=== PATIENT | female | born 1975 | race Caucasian/White ===

== ENCOUNTER → 2017-09-07 | Day surgery (SDC) | payer BC ==
[~2017-09-07] MED LIST: AMITRIPTYLINE H25 MG PO; ATIVAN1 MG PO; BENEFIBER1 EACH PO; BENZTROPINE ME0.5 MG PO; CLONAZEPAM0.5 MG PO; COLACE100 MG PO; DIPHENHYDRAMINE HCL INJ 1 ML ONE; ELAVIL PO; FENTANYL CITRATE/PF 100MCG/2 ML INJ ONE; FLORINEF PO; FLUCONAZOLE 200 MG/100 ML 100 ML IV ONE; GEODON80 MG PO; INSULIN PUMP; LASIX20 MG PO; LEVAQUIN D PO; LEVAQUIN500 MG PO; LIDOCAINE HCL 2% LOCAL INJ 5 ML SDV VIAL INJ ONE; LIPITOR40 MG PO; LUTEIN6 MG PO; MECLIZINE HCL25 MG PO; NORCO 10-325 T1 EACH; NORCO 10-325 T1 EACH PO; NORTRIPTYLINE H50 MG PO; OXCARBAZEPINE300 MG PO; OXYCONTIN20 MG PO; OXYCONTIN30 MG PO; PANTOPRAZOLE SO40 MG PO; PROMETHAZINE HC25 M1 PO; PROPOFOL IV EMULSION 10 MG/ML 50 ML VIAL ONE; PROPRANOLOL HCL20 MG PO; SEROQUEL XR50 MG PO; SYNTHROID150 MCG PO; TEMAZEPAM30 MG PO; THERA1 EACH PO; TOPAMAX50 MG PO; TRIAZOLAM0.25 MG PO; VIIBRYD40 MG PO
--- NOTE | 2017-09-07 11:30 | Operative Report ---
DATE OF PROCEDURE: September 07, 2017 REFERRING PHYSICIAN: Dr. Hawk Hopkins PROCEDURES PERFORMED 1. Esophagogastroduodenoscopy with esophageal dilatation, biopsies and polypectomy. 2. Colonoscopy with biopsies and polypectomy. INDICATIONS FOR EGD: Dysphagia, upper abdominal pain. INDICATIONS FOR COLONOSCOPY: Constipation and history of colitis. MEDICATION: Patient was done under MAC. Please see anesthesiologist's note. PROCEDURE: With the patient in the left lateral decubitus position, the flexible fiberoptic Olympus gastroscope was introduced into the esophagus under direct visualization without any difficulty. There were some scattered whitish plaques throughout the esophagus. Those were brushed and sent to stain for master. There was a mild stricture noted at the GE junction, and that was dilated to size 52-[place] Morrow. The scope was then advanced with ease into the stomach, and the mucosa overlying the antrum revealed some patchy, intense erythema and low-grade edema, and biopsies were obtained and sent to stain for H. pylori. There were some atrophic changes noted in the body of the stomach, and biopsies were obtained to rule out atrophic gastritis. The pylorus was of normal contour and shape. It was intubated with ease, and the scope was advanced all the way to the 2nd portion of the duodenum. There was a minute nodule noted in the proximal 2nd portion that was excised per the cold biopsy forceps. The mucosa overlying the duodenal bulb appeared to be within normal limits. The scope was then withdrawn back into the stomach and retroflexed, and a minute polyp was noted in the fundus of the stomach and that was excised per the cold biopsy forceps. An intact Lap-Band was also noted. The scope was then straightened out. The stomach was decompressed. Scope was subsequently withdrawn. Patient tolerated the procedure well. Of note, on the way out, a minute tongue of velvety red mucosa was noted to extend proximally from the GE junction, and biopsies were obtained to rule out Voss's. IMPRESSION 1. Rule out master esophagitis. 2. Rule out Voss's esophagus. 3. Esophageal stricture at gastroesophageal junction dilated to size 52-[place] Morrow. 4. Gastritis, antrum, biopsied. Biopsies sent to stain for H. pylori. 5. Rule out atrophic gastritis, gastric body. 6. Minute polyp at fundus, excised with cold biopsy forceps. 7. Lap-Band intact. 8. Duodenal polyp, proximal 2nd portion, removed per the cold biopsy forceps. PLAN: Follow up histology. Continue current therapy. Add Diflucan 200 mg 1 p.o. daily times 7 days. The patient was then turned around. After adequate lubrication of the anal canal, a flexible fiberoptic Olympus colonoscope was inserted into the rectum with ease and advanced all the way to the cecum. A minute polyp was hot biopsied from the cecum. The ascending and transverse grossly appeared to be within normal limits. The left colon revealed some patchy mild to moderate inflammatory changes. Multiple random biopsies were obtained. Two minute polyps were hot biopsied from the rectum. The scope was then retroflexed into the distal rectum, and small internal hemorrhoids were noted, none of which were actively bleeding. The scope was then straightened out. Rectosigmoid area as well as the distal rectal area were decompressed. Scope was subsequently withdrawn. Patient tolerated the procedure well. IMPRESSION 1. Cecal polyp, hot biopsied. 2. Mild, patchy, left-sided colitis. 3. Rectal polyps times 2, hot biopsied. 4. Internal hemorrhoids, none actively bleeding. PLAN: Follow up histology. Patient will need a followup colonoscopy in 3 years. Job#: [id number] CC: HAWK HOPKINS DO
== END | disposition home or self-care (01) ==
LOC: OR 07:15
PROVIDERS: ATTEND Internal Medicine Gastroenterology
DX: K59.00 Constipation, unspecified (principal); D12.0 Benign neoplasm of cecum; K62.1 Rectal polyp; K31.7 Polyp of stomach and duodenum; K29.50 Unspecified chronic gastritis without bleeding; K22.2 Esophageal obstruction; K51.50 Left sided colitis without complications; K21.9 Gastro-esophageal reflux disease without esophagitis; K20.9 Esophagitis, unspecified; Z98.84 Bariatric surgery status; K64.8 Other hemorrhoids; E10.9 Type 1 diabetes mellitus without complications; I95.1 Orthostatic hypotension; E03.9 Hypothyroidism, unspecified; G62.9 Polyneuropathy, unspecified; F32.9 Major depressive disorder, single episode, unspecified; F41.9 Anxiety disorder, unspecified; F43.10 Post-traumatic stress disorder, unspecified; Z01.810 Encounter for preprocedural cardiovascular examination; Z79.4 Long term (current) use of insulin; Z94.83 Pancreas transplant status
CPT/HCPCS: 36415; 43239; 43450; 45384; 82948; 93005; J1200; J1450; J2001; 45380

== ENCOUNTER → 2020-02-22 | Day surgery (SDC) | payer BC, OTHER ==
[~2020-02-22] MED LIST changes: -DIPHENHYDRAMINE HCL INJ 1 ML ONE; -FENTANYL CITRATE/PF 100MCG/2 ML INJ ONE; -FLUCONAZOLE 200 MG/100 ML 100 ML IV ONE; +MIRALAX17 GM PO; +PRAVACHOL40 MG PO; +PROPOFOL IV EMULSION 10 MG/ML 20 ML VIAL ONE; -PROPOFOL IV EMULSION 10 MG/ML 50 ML VIAL ONE; +SERTRALINE HCL50 MG PO; +SUCRALFATE1 GM PO; +TRAZODONE HCL50 MG PO
[2020-02-22 16:35] VITALS: BP 128/80
--- NOTE | 2020-02-22 23:27 | Operative Report ---
DATE OF PROCEDURE: 02/22/2020 SURGEON: Sancho Benitez MD PROCEDURE: EGD with esophageal dilatation and biopsies. INDICATION FOR PROCEDURES: Dysphagia. MEDICATIONS: The patient was done under MAC, please see anesthesiologist's note. PROCEDURE IN DETAIL: With the patient in the left lateral decubitus position, a flexible fiberoptic Olympus gastroscope was introduced into the esophagus under direct visualization without any difficulty. The esophagus appeared to be within normal limits. A minute tongue of velvety red mucosa was noted to extend proximally from the GE junction that was biopsied to rule out Voss's. Esophagus was then dilated to size 52-[place] Morrow. The scope was then advanced with ease into the stomach. Mucosa overlying the antrum and the body revealed some patchy intense erythema and low-grade to moderate edema and biopsies were obtained, sent to stain for H pylori. There was some retained solid debris noted in the stomach, particularly in the fundus and the body reflective of some gastroparesis. The pylorus was of normal contour and shape, was intubated with ease and the scope was advanced all the way to the second portion of the duodenum. The scope was then withdrawn slowly. Mucosa overlying the proximal second portion and the duodenal bulb appeared to be within normal limits. The scope was then withdrawn back into the stomach and retroflexed and the lap band appeared to be intact and in good position. The scope was then straightened out and was subsequently withdrawn. The patient tolerated the procedure well. IMPRESSION: 1. Rule out Voss's esophagus. 2. Esophagus dilated to size 52-[place] Morrow. 3. Status post lap band intact. 4. Gastritis, biopsied, biopsies sent to stain for H pylori. 5. Some retained solid debris in fundus and body of stomach reflective of some gastroparesis. PLAN: Follow up histology. Continue Protonix 40 mg one p.o. a.c. b.i.d. Sancho Benitez MD [facility] [place]/MOD[facility] /[id number] cc: Tita Uribe DO
== END | disposition home or self-care (01) ==
LOC: OR 12:49
PROVIDERS: ATTEND Internal Medicine Gastroenterology
DX: K20.9 Esophagitis, unspecified (principal); K29.50 Unspecified chronic gastritis without bleeding; K31.84 Gastroparesis; K21.9 Gastro-esophageal reflux disease without esophagitis; Z98.84 Bariatric surgery status; I95.1 Orthostatic hypotension; E03.9 Hypothyroidism, unspecified; E10.9 Type 1 diabetes mellitus without complications; Z88.8 Allergy status to other drugs, medicaments and biological substances; Z91.048 Other nonmedicinal substance allergy status; Z01.810 Encounter for preprocedural cardiovascular examination; Z01.812 Encounter for preprocedural laboratory examination; Z11.59 Encounter for screening for other viral diseases; Z79.4 Long term (current) use of insulin
CPT/HCPCS: 36415; 43239; 43450; 81025; 82948; 87635; 93005; J2001; J2704